=== PATIENT | male | born 1930 | race Caucasian/White ===

== ENCOUNTER 2019-10-30 09:50 | Inpatient (IN) ==
[2019-10-30] MEDS ORDERED: 0.9 % SODIUM CHLORIDE 1,000 ML IV ONE (10:03)
[2019-10-30] MEDS ORDERED: ONDANSETRON 4 MG/2 ML VIAL IV ONE (10:03)
[2019-10-30 11:01] LABS: Basophils # (Auto) 0.01 K/mcL (0.00-0.30); Basophils % (Auto) 0.1 % (0.0-2.0); Eosinophils # (Auto) 0.04 K/mcL (0.00-0.70); Eosinophils % (Auto) 0.5 % (0.0-7.0); Granulocytes % (Auto) 82.1 % (38.0-78.0); Hematocrit 34.3 % (40.1-51.0); Lymphocytes # (Auto) 0.74 K/mcL (1.50-4.80); Lymphocytes % (Auto) 8.8 % (15.5-49.0); Mean Cell Volume 86.8 fL (80.0-100.0); Mean Platelet Volume 9.7 fL (7.4-10.4); Monocytes # (Auto) 0.71 K/mcL (0.10-0.90); Monocytes % (Auto) 8.5 % (1.0-12.0); Platelet Count 205 K/mcL (140-440); RBC 3.95 M/mcL (4.63-6.08); Red Cell Distribution Width 12.3 % (11.5-14.5); WBC 8.4 K/mcL (4.50-11.00)
--- NOTE | 2019-10-30 11:18 | XRay Report ---
CLINICAL INFORMATION: abdominal pain and bloating COMPARISON: None. FINDINGS: The stool gas pattern is unremarkable. There is no free air, soft tissue mass, organomegaly or pathologic calcification. Severe right hip degeneration noted IMPRESSION: Normal abdomen Interpreted and Authenticated by: Royce Stinson 10/30/19
--- NOTE | 2019-10-30 11:20 | XRay Report ---
CLINICAL INFORMATION: cough, fever, weakness COMPARISON: None. FINDINGS: The heart is mildly enlarged. Mediastinum and pulmonary vessels are normal. The lungs are clear. No effusions. Moderate degenerative disc disease and mild chronic wedging seen throughout the mid thoracic spine IMPRESSION: Mild cardiomegaly. No acute disease Interpreted and Authenticated by: Royce Stinson 10/30/19
[2019-10-30 11:23] LABS: ALT/SGPT 12 U/l (0-40); AST/SGOT 24 U/l (0-37); Albumin 4.1 gm/dL (3.2-5.2); Albumin/Globulin Ratio 1.4 (1.0-2.3); Alkaline Phosphatase 65 U/L (39-117); Bilirubin,Total 0.7 mg/dL (0.0-1.0); Blood Urea Nitrogen 16 mg/dl (8-23); Calcium 9.2 mg/dl (8.6-10.4); Carbon Dioxide 20 mmol/L (22-30); Glomerular Filtration Rate 66; Glucose 98 mg/dL (70-105)
[2019-10-30 11:28] LABS: Chloride 87 mmol/L (96-108)
--- NOTE | 2019-10-30 11:34 | Emergency Department Note ---
General Adult HPI - General Chief complaint: Abdominal Pain Stated complaint: Stomach bloating, Headache, Fatigue, Nausea Time Seen by Provider: 10/30/19 10:03 Source: patient Mode of arrival: ambulatory Limitations: no limitations - History of Present Illness HPI Narrative: 89-year-old gentleman presents with generally feeling poor for 6 to 7 days. Is reporting flulike symptoms with body aches and chills. States the body aches are better but he does has absolutely no energy and does not feel like he is getting better in that regard. States he feels so weak it is even hard to walk. He does report that he is probably dehydrated. Does have nausea but no vomiting or diarrhea. States no appetite. No dysuria or frequency. He does have diffuse generalized abdominal discomfort but states he would not really call it pain. No chest pain or difficulty breathing. Does have a moist cough but states he cannot get much up. - Related Data Home Medications Medication Instructions Recorded Confirmed ascorbic acid (vitamin C) 1,000 mg 1 g PO QDAY tab 05/13/18 10/30/19 tablet aspirin 81 mg tablet,delayed 81 mg PO QDAY 05/13/18 10/30/19 release epinephrine 0.3 mg/0.3 mL 0.3 mg IM ONCE 05/13/18 07/25/19 injection, auto-injector levothyroxine 50 mcg tablet 50 mcg PO QAM tab 05/13/18 10/30/19 vitamin E 400 unit tablet 400 unit PO QDAY 05/13/18 10/30/19 zinc 50 mg tablet 100 mg PO QDAY tab 05/13/18 10/30/19 metoprolol succinate 25 mg 25 mg PO QAM tab 08/21/19 10/30/19 tablet,extended release 24 hr Previous Rx's Medication Instructions Recorded meloxicam 7.5 mg tablet 7.5 mg PO BID PRN #60 tab 09/28/19 Allergies Allergy/AdvReac Type Severity Reaction Status Date / Time bee venom protein (honey bee) Allergy Severe Anaphylaxis Verified 10/30/19 09:53 Review of Systems All systems ED: reviewed and negative except as stated. Past Medical History - Past Medical History [facility] Narrative: Medical History (Last Reviewed 08/21/19 @ 11:35 by Rodrigo Waller MD) Fatigue (Chronic) Erectile dysfunction (Chronic) Seborrheic dermatitis (Chronic) Palpitations (Chronic) Bee sting allergy (Chronic) Dermatitis (Chronic) Hip pain, right (Chronic) Hyperlipidemia (Chronic) CHF (congestive heart failure) (Chronic) Atrial fibrillation (Chronic) Osteoarthritis (Chronic) Hypothyroidism (Chronic) Paroxysmal atrial fibrillation with rapid ventricular response (Chronic) Elevated PSA (Chronic) Malignant neoplasm of prostate (Acute) Past Surgical History (Last Reviewed 08/21/19 @ 11:35 by Rodrigo Waller MD) History of laparoscopy (Chronic ~2004) Status post bilateral hernia repair (Chronic) - Social History smoking status: Former smoker Alcohol use: Reports: None Drug use: Reports: none Physical Exam Limitations: no limitations General appearance: alert Head: atraumatic, normocephalic, normal inspection Eye: Present: normal appearance. Absent: conjunctival injection ENT: Present: normal exam, normal oropharynx, mucous membranes moist, TM's normal bilaterally, normal external ear exam. Absent: nasal congestion Neck: Present: normal inspection, trachea midline. Absent: tenderness, lymphadenopathy Chest: Present: symmetric chest wall rise Respiratory: Present: normal lung sounds bilaterally. Absent: respiratory distress, rales/crackles, accessory muscle use Cardiovascular: Present: regular rate, normal heart sounds Abdominal: Present: soft, normal bowel sounds. Absent: distention, tenderness (can not reproduce tenderness with palpation), guarding, rebound, mass Extremities: Present: normal inspection, normal capillary refill. Absent: pedal edema Neurological: Present: alert, oriented X3 Psychiatric: Present: normal affect, normal mood Skin: Present: warm, dry, intact, normal color Course Course Narrative: @1300 Dr. Lambert agrees to accept this patient Vital Signs Temperature 98.6 F 10/30/19 09:53 Pulse Rate 78 10/30/19 09:53 Respiratory Rate 18 10/30/19 09:53 Blood Pressure 166/73 10/30/19 09:53 Pulse Oximetry (%) 95 10/30/19 09:53 Temperature 98.6 F 10/30/19 09:53 Pulse Rate 78 10/30/19 09:53 Respiratory Rate 18 10/30/19 09:53 Blood Pressure 166/73 10/30/19 09:53 Pulse Oximetry (%) 95 10/30/19 09:53 Medical Decision Making - Lab Data Lab results reviewed: Yes I reviewed the patient's lab results. Result diagrams: 10/30/19 10:18 10/30/19 10:18 Lab Results 10/30/19 10/30/19 Range/Units 10:18 10:18 WBC 8.4 (4.50-11.00) K/mcL RBC 3.95 L (4.63-6.08) M/mcL Hgb 12.0 L (13.7-17.5) g/dL Hct 34.3 L (40.1-51.0) % MCV 86.8 (80.0-100.0) fL MCH 30.4 (26.0-34.0) pg MCHC 35.0 (31.0-36.0) g/dL RDW 12.3 (11.5-14.5) % Plt Count 205 (140-440) K/mcL MPV 9.7 (7.4-10.4) fL Gran % 82.1 H (38.0-78.0) % Lymph % (Auto) 8.8 L (15.5-49.0) % Pope % (Auto) 8.5 (1.0-12.0) % Eos % (Auto) 0.5 (0.0-7.0) % Baso % (Auto) 0.1 (0.0-2.0) % Gran # 6.90 (1.80-8.00) K/mcL Lymph # (Auto) 0.74 L (1.50-4.80) K/mcL Pope # (Auto) 0.71 (0.10-0.90) K/mcL Eos # (Auto) 0.04 (0.00-0.70) K/mcL Baso # (Auto) 0.01 (0.00-0.30) K/mcL Sodium 125 L (133-145) mmol/L Potassium 4.1 (3.3-5.1) mmol/L Chloride 87 L (96-108) mmol/L Carbon Dioxide 20 L (22-30) mmol/L Anion Gap 18.0 H (8-16) BUN 16 (8-23) mg/dl Creatinine 1.0 (0.7-1.2) mg/dl GFR Calculation 66 Glucose 98 (70-105) mg/dL Calcium 9.2 (8.6-10.4) mg/dl Total Bilirubin 0.7 (0.0-1.0) mg/dL AST 24 (0-37) U/l ALT 12 (0-40) U/l Alkaline Phosphatase 65 (39-117) U/L Total Protein 7.1 (5.9-8.4) gm/dL Albumin 4.1 (3.2-5.2) gm/dL Globulin 3.0 (2.2-3.7) gm/dL Albumin/Globulin Ratio 1.4 (1.0-2.3) - Radiology Data Radiology results reviewed: Yes I reviewed the patient's radiology results. Disposition Pt seen by ROULETTE DEALER/PA only: Yes Clinical Impression: Flu-like symptoms, Dehydration, Hyponatremia Disposition: Xfer As Outpt/Obs ([facility]) Condition: Fair Referrals: Rodrigo Waller MD [Primary Care Provider] - Time of Disposition: 13:08
--- NOTE | 2019-10-30 13:07 | Internal Med History&Physical ---
Medical - H&P: [facility] Patient information: Note initiated : 10/30/19 at 1:05 pm Service Date, if different from initiated Date: [] Patient: Santhosh Montes a 89 y/o M admitted on for Stomach bloating, Headache, Fatigue, Nausea. Chief Complaint: [] Chief complaint: Weakness History of present illness: Mr. 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 He presents to the ER with 5 days onset of worsening weakness along with loss of appetite and abdominal discomfort. Initial work-up was consistent with hyponatremia at 125. Flu swab was negative. Hospitalist service was consulted in light of profound weakness and symptomatic hyponatremia . At the time evaluation patient is alert and oriented and able to provide most of the history. He denies recent sick contacts. He denies diarrhea, headache, photophobia or shaking chills. He endorses to sore throat and cough. He denies changes in medications. 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 Is otherwise fairly active at baseline. Review of systems A 10 point review system was performed and is negative except for ones cussed above Medical - H&P: [facility] Medical history: Fatigue (Chronic) Erectile dysfunction (Chronic) Seborrheic dermatitis (Chronic) Palpitations (Chronic) Bee sting allergy (Chronic) Dermatitis (Chronic) Hip pain, right (Chronic) Hyperlipidemia (Chronic) CHF (congestive heart failure) (Chronic) Atrial fibrillation (Chronic) Osteoarthritis (Chronic) Hypothyroidism (Chronic) Paroxysmal atrial fibrillation with rapid ventricular response (Chronic) Elevated PSA (Chronic) Malignant neoplasm of prostate (Acute) Surgical History History of laparoscopy (Chronic ~2004) Status post bilateral hernia repair (Chronic) Family History Mother , age 97 No problems noted. Father , age 97 No problems noted. Social History marital status: occupational status: retired leisure activities: hunting physical activity: none smoking status: Former smoker alcohol intake frequency: does not drink substance use type: does not use seatbelt use: always Medical - H&P: Meds Home Medications Medication Instructions Recorded Confirmed Type ascorbic acid (vitamin C) 1,000 mg 1 g PO QDAY tab 05/13/18 10/30/19 History tablet aspirin 81 mg tablet,delayed 81 mg PO QDAY 05/13/18 10/30/19 History release epinephrine 0.3 mg/0.3 mL 0.3 mg IM ONCE 05/13/18 10/30/19 History injection, auto-injector levothyroxine 50 mcg tablet 50 mcg PO QAM tab 05/13/18 10/30/19 History vitamin E 400 unit tablet 400 unit PO QDAY 05/13/18 10/30/19 History zinc 50 mg tablet 100 mg PO QDAY tab 05/13/18 10/30/19 History metoprolol succinate 25 mg 25 mg PO QAM tab 08/21/19 10/30/19 History tablet,extended release 24 hr meloxicam 7.5 mg tablet 7.5 mg PO BID PRN #60 tab 09/28/19 10/30/19 Rx Allergies Allergy/AdvReac Type Severity Reaction Status Date / Time bee venom protein (honey bee) Allergy Severe Anaphylaxis Verified 10/30/19 09:53 Medical - H&P: Exam - Constitutional Vitals: Temp Pulse Resp BP Pulse Ox 98.6 F 78 18 166/73 95 10/30/19 09:53 10/30/19 09:53 10/30/19 09:53 10/30/19 09:53 10/30/19 09:53 General appearance: no acute distress Exam: Alert oriented head normocephalic No ear nose discharge Neck no lymphadenopathy Oral cavity dry S1-S2 regular rhythm, ESM grade 2 Diminished breath sounds bases Abdomen soft nontender no rebound Lower extremity no cyanosis clubbing or joint swelling Skin no suspicious lesion Psych alert cooperative Neuro nonfocal Medical - H&P: Reslt - Labs CBC & Chem 7: 10/30/19 10:18 10/30/19 10:18 Labs: Short CBC 10/30/19 Range/Units 10:18 WBC 8.4 (4.50-11.00) K/mcL Hgb 12.0 L (13.7-17.5) g/dL Hct 34.3 L (40.1-51.0) % Plt Count 205 (140-440) K/mcL BMP 10/30/19 10:18 Sodium 125 L Potassium 4.1 Chloride 87 L Carbon Dioxide 20 L BUN 16 Creatinine 1.0 Glucose 98 Calcium 9.2 Liver Function 10/30/19 Range/Units 10:18 Total Bilirubin 0.7 (0.0-1.0) mg/dL AST 24 (0-37) U/l ALT 12 (0-40) U/l Alkaline Phosphatase 65 (39-117) U/L Albumin 4.1 (3.2-5.2) gm/dL Medical - H&P: A/P (1) Hyponatremia syndrome Current visit: Yes Status: Acute * Hypovolemic hyponatremia-sodium at 125, continue crystalloids, check urine and serum osmolality, 6 hourly sodium checks. * Generalized weakness-PT OT/nutrition support. Likely secondary to hyponatremia * Volume depletion continue crystalloids * Hypothyroidism continue thyroxine * History of hypertension continue metoprolol * Full code * Prophylaxis heparin Plan * Inpatient admission * Hyponatremia work-up * Pre-existing medical condition management as above * PT OT/nutrition support
[2019-10-30] MEDS ORDERED: POLYETHYLENE GLYCOL 3350 17 GM PACKET PO PRN (16:02)
[2019-10-30] MEDS ORDERED: ONDANSETRON 4 MG/2 ML VIAL IV PRN (16:02)
[2019-10-30] MEDS ORDERED: ACETAMINOPHEN 325 MG TABLET PO PRN (16:02)
[2019-10-30] MEDS ORDERED: MELATONIN 3 MG TABLET PO PRN (16:02)
[2019-10-30] MEDS ORDERED: POTASSIUM CHLORIDE 20 MEQ PACKET PO PRN (16:02)
[2019-10-30] MEDS ORDERED: ONDANSETRON 4 MG ODT TABLET SL PRN (16:02)
[2019-10-30] MEDS ORDERED: BISACODYL 10 MG SUPP.RECT PR PRN (16:02)
[2019-10-30] MEDS ORDERED: MAGNESIUM SULFATE 2 GM/50 ML BAG IV PRN (16:02)
[2019-10-30] MEDS ORDERED: ACETAMINOPHEN 650 MG/65 ML BOTTLE IV PRN (16:02)
[2019-10-30] MEDS ORDERED: ONDANSETRON 4 MG/2 ML VIAL ONE (16:04)
[2019-10-30] MEDS: 0.9 % SODIUM CHLORIDE 1,000 ML IV SCH (17:03)
[2019-10-30] MEDS: 0.9 % SODIUM CHLORIDE 10 ML SYRINGE IV SCH ×2 (17:04→20:33)
[2019-10-30] MEDS: DOCUSATE SODIUM 100 MG CAPSULE PO SCH (20:33)
[2019-10-30] MEDS: SENNOSIDES/DOCUSATE SODIUM 1 TAB TABLET PO SCH (20:33)
[2019-10-30] MEDS: HEPARIN 5,000 UNIT/ML VIAL SQ SCH (20:33)
[2019-10-31] MEDS: 0.9 % SODIUM CHLORIDE 10 ML SYRINGE IV SCH ×4 (05:09→23:28)
[2019-10-31 07:11] LABS: Bilirubin,Direct < 0.2 mg/dL (0.0-0.3)
[2019-10-31 07:13] LABS: ALT/SGPT 10 U/l (0-40); AST/SGOT 23 U/l (0-37); Albumin 3.4 gm/dL (3.2-5.2); Albumin/Globulin Ratio 1.4 (1.0-2.3); Alkaline Phosphatase 52 U/L (39-117); Bilirubin,Total 0.5 mg/dL (0.0-1.0); Blood Urea Nitrogen 12 mg/dl (8-23); Calcium 8.4 mg/dl (8.6-10.4); Carbon Dioxide 22 mmol/L (22-30); Chloride 93 mmol/L (96-108); Globulin 2.5 gm/dL (2.2-3.7); Glomerular Filtration Rate 66; Glucose 91 mg/dL (70-105); Lactate Dehydrogenase 178 U/L (94-250); Phosphorous 2.7 mg/dL (2.7-4.5); Triglycerides 55 mg/dl (<150); Uric Acid 5.1 mg/dL (2.5-8.0)
[2019-10-31 07:15] LABS: Hematocrit 29.9 % (40.1-51.0); Hemoglobin 10.3 g/dL (13.7-17.5); Mean Cell Volume 88.2 fL (80.0-100.0); Mean Corpuscular HGB Conc 34.4 g/dL (31.0-36.0); Platelet Count 194 K/mcL (140-440); RBC 3.39 M/mcL (4.63-6.08); Red Cell Distribution Width 12.6 % (11.5-14.5); WBC 8.4 K/mcL (4.50-11.00)
[2019-10-31 09:14] LABS: Band Neutrophils % 6 % (0-10); Lymphocytes % 15 % (15-49); Monocytes % (Manual) 9 % (1-12); Ovalocytes 2+ (NONE SEEN); Platelet Estimate NORMAL (NORMAL); RBC Morphology ABNORM (NORMAL); Segmented Neutrophils % 70 % (38-78)
[2019-10-31] MEDS: DOCUSATE SODIUM 100 MG CAPSULE PO SCH ×2 (09:42→19:24)
[2019-10-31] MEDS: MULTIVIT,THER IRON,CA,FA & MIN 1 TABLET PO SCH (09:42)
[2019-10-31] MEDS: HEPARIN 5,000 UNIT/ML VIAL SQ SCH ×2 (09:42→19:23)
--- NOTE | 2019-10-31 12:28 | Internal Med Progress Note ---
Medical - PN: Subj Patient information: Note initiated : 10/31/19 at 12:26 pm Service Date, if different from initiated Date: [] Patient: Santhosh Montes a 89 y/o M admitted on 10/30/19 for Stomach bloating, Headache, Fatigue, Nausea. Chief Complaint: [] Interval history: Mr. 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 He presents to the ER with 5 days onset of worsening weakness along with loss of appetite and abdominal discomfort. Initial work-up was consistent with hyponatremia at 125. Flu swab was negative. Hospitalist service was consulted in light of profound weakness and symptomatic hyponatremia. At the time evaluation patient is alert and oriented and able to provide most of the history. He denies recent sick contacts. He denies diarrhea, headache, photophobia or shaking chills. He endorses to sore throat and cough. He denies changes in medications. 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 Is otherwise fairly active at baseline. 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 Continue salt tabs/fluid r estriction. Continue PT OT/dietary support. at bedside. T-max 101. Cultures pending. Sodium 128. - Constitutional Vitals: Vital Signs Temp Pulse Resp BP Pulse Ox 98.2 F 73 18 151/71 92 10/31/19 08:00 10/31/19 08:00 10/31/19 08:00 10/31/19 08:00 10/31/19 08:00 Period Temp Pulse Resp BP Sys/Plaza Pulse Ox Last 24 Hr 98.2 F-101.6 F 71-87 18-24 136-173/61-91 92-97 Intake and Output 10/30/19 10/31/19 10/31/19 21:59 05:59 13:59 Intake Total 120 500 Output Total 125 900 375 Balance -5 -400 -375 Weight 200 lb Intake & Output: Intake & Output 10/30/19 10/31/19 10/31/19 21:59 05:59 13:59 Intake Total 120 500 Output Total 125 900 375 Balance -5 -400 -375 Weight 200 lb Intake: Oral 120 500 Output: Void Amount 125 900 375 Other: Meal Dinner Percent of Meal Consumed 25% Feeding Ability Independent Urine Appearance Clear Clear Urine Color Bright Yellow Pale Dark Yellow Urine Odor Normal Normal Strong General appearance: no acute distress Exam: Alert oriented Nonlabored breathing No anxiety Nondistended abdomen No lymphedema Medical - PN: Obj Da - Labs CBC & Chem 7: 10/31/19 05:06 10/31/19 08:10 Labs: Abnormal Lab Results 10/31/19 10/31/19 10/31/19 08:10 05:06 05:06 RBC 3.39 L Hgb 10.3 L Hct 29.9 L Gran % Lymph % (Auto) Lymph # (Auto) RBC Morphology Abnorm A Ovalocytes 2+ A Sodium 128 L 127 L Chloride 93 L Carbon Dioxide Anion Gap Osmolality Calcium 8.4 L 10/31/19 10/30/19 10/30/19 00:10 20:18 10:18 RBC Hgb Hct Gran % Lymph % (Auto) Lymph # (Auto) RBC Morphology Ovalocytes Sodium 125 L 122 L Chloride Carbon Dioxide Anion Gap Osmolality 269 L Calcium 10/30/19 10/30/19 10:18 10:18 RBC 3.95 L Hgb 12.0 L Hct 34.3 L Gran % 82.1 H Lymph % (Auto) 8.8 L Lymph # (Auto) 0.74 L RBC Morphology Ovalocytes Sodium 125 L Chloride 87 L Carbon Dioxide 20 L Anion Gap 18.0 H Osmolality Calcium Meds: Medications Acetaminophen (Tylenol) 650 mg PO Q4-6HP PRN; Protocol PRN Reason: Per Pain Protocol/Fever > 101 Last Admin: 10/30/19 16:50 Dose: 650 mg Documented by: Bisacodyl (Dulcolax) 10 mg ID Q2-3DAYS PRN PRN Reason: Constipation Docusate Sodium (Colace) 100 mg PO BID [facility] Last Admin: 10/31/19 09:42 Dose: 100 mg Documented by: Heparin Sodium (Porcine) (Heparin) 5,000 unit SQ Q12 [facility] Last Admin: 10/31/19 09:42 Dose: 5,000 unit Documented by: Sodium Chloride (Sodium Chloride 0.9%) 1,000 mls @ 50 mls/hr IV .Q20H [facility] Stop: 11/02/19 04:01 Last Admin: 10/30/19 17:03 Dose: 50 mls/hr Documented by: Acetaminophen (Ofirmev) 650 mg in 65 mls @ 130 mls/hr IV Q6HP PRN; Protocol PRN Reason: Per Pain Protocol/Fever > 101 Magnesium Sulfate (Magnesium Sulfate) 2 gm in 50 mls @ 50 mls/hr IV UD PRN PRN Reason: MG = or < 1.7 Iron Carb/Multivit/Bishop/Folic Acid (Multivitamin W/Minerals) 1 tab PO DAILY [facility] Last Admin: 10/31/19 09:42 Dose: 1 tab Documented by: Melatonin (Melatonin 3mg Tablet) 3 mg PO HSP PRN PRN Reason: Insomnia Ondansetron HCl (Zofran Odt) 4 mg SL Q4-6HP PRN; Protocol PRN Reason: Nausea And Vomiting Ondansetron HCl (Zofran) 4 mg IV Q4-6HP PRN; Protocol PRN Reason: Nausea And Vomiting Polyethylene Glycol (Miralax) 17 gm PO DAILYP PRN PRN Reason: Constipation Potassium Chloride (Klor-Con) 40 meq PO DAILYP PRN PRN Reason: K+ < 3.5 Senna/Docusate Sodium (Senna Plus Tablet) 1 tab PO HS [facility] Last Admin: 10/30/19 20:33 Dose: 1 tab Documented by: Sodium Chloride (Saline Flush) 10 ml IV Q8 [facility] Last Admin: 10/31/19 05:09 Dose: 10 ml Documented by: Sodium Chloride (Sodium Chloride) 2 gm PO TID [facility] Medical - PN: A/P - Time Spent With Patient Total time spent is greater than 50% in coordination of care (as documented) at patient's floor/unit and/or counseling patient: 25 - 35 minutes (1) Hyponatremia syndrome Status: Acute Assessment and plan: * 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 Continues salt tabs/free water restriction * Generalized weakness-secondary to hyponatremia. Continue PT OT/nutrition support. * Fever with acute viral syndrome. Supportive management. Pending blood cultures * Hypothyroidism continue thyroxine * History of hypertension continue metoprolol * Full code * Prophylaxis heparin Plan * Salt tabs/free water restriction * Continue pre-existing medical condition management as above * PT OT/nutrition support * Blood cultures * Discharge planning likely in 24 to 48 hours Current Visit: Yes Medical - PN: Qual - VTE Deep Vein Thrombosis/Pulmonary Embolism Present on Admission: No
[2019-10-31] MEDS: 0.9 % SODIUM CHLORIDE 1,000 ML IV SCH (13:23)
[2019-10-31] MEDS: SODIUM CHLORIDE 1 GM TABLET PO SCH ×2 (16:06→19:24)
[2019-10-31] MEDS: SENNOSIDES/DOCUSATE SODIUM 1 TAB TABLET PO SCH (19:24)
[2019-11-01] MEDS: 0.9 % SODIUM CHLORIDE 10 ML SYRINGE IV SCH (05:38)
[2019-11-01] MEDS: 0.9 % SODIUM CHLORIDE 1,000 ML IV SCH ×2 (07:25→09:25)
[2019-11-01 08:04] LABS: Hematocrit 31.2 % (40.1-51.0); Hemoglobin 10.7 g/dL (13.7-17.5); Mean Cell Volume 87.6 fL (80.0-100.0); Mean Corpuscular HGB Conc 34.3 g/dL (31.0-36.0); Mean Platelet Volume 9.9 fL (7.4-10.4); Platelet Count 199 K/mcL (140-440); RBC 3.56 M/mcL (4.63-6.08); Red Cell Distribution Width 12.5 % (11.5-14.5); WBC 8.1 K/mcL (4.50-11.00)
[2019-11-01] MEDS: HEPARIN 5,000 UNIT/ML VIAL SQ SCH (08:04)
[2019-11-01] MEDS: SODIUM CHLORIDE 1 GM TABLET PO SCH (08:04)
[2019-11-01] MEDS: MULTIVIT,THER IRON,CA,FA & MIN 1 TABLET PO SCH (08:04)
[2019-11-01] MEDS: DOCUSATE SODIUM 100 MG CAPSULE PO SCH (08:04)
[2019-11-01 08:21] LABS: ALT/SGPT 12 U/l (0-40); AST/SGOT 27 U/l (0-37); Albumin 3.1 gm/dL (3.2-5.2); Alkaline Phosphatase 79 U/L (39-117); Bilirubin,Direct < 0.2 mg/dL (0.0-0.3); Bilirubin,Total 0.6 mg/dL (0.0-1.0); Blood Urea Nitrogen 11 mg/dl (8-23); Calcium 8.4 mg/dl (8.6-10.4); Carbon Dioxide 21 mmol/L (22-30); Chloride 96 mmol/L (96-108); Glomerular Filtration Rate 75; Glucose 95 mg/dL (70-105); Lactate Dehydrogenase 244 U/L (94-250); Phosphorous 2.2 mg/dL (2.7-4.5); Triglycerides 77 mg/dl (<150); Uric Acid 4.4 mg/dL (2.5-8.0)
[2019-11-01 08:41] LABS: Eosinophils % (Manual) 1 % (0-7); Lymphocytes % 15 % (15-49); Monocytes % (Manual) 5 % (1-12); Platelet Estimate NORMAL (NORMAL); RBC Morphology NORMAL (NORMAL); Segmented Neutrophils % 79 % (38-78)
--- NOTE | 2019-11-01 09:15 | Discharge Summary ---
Medical - DS: Prov Patient information: Note initiated : 11/01/19 at 9:13 am Service Date, if different from initiated Date: [] Patient: Santhosh Montes 89 y/o M admitted on 10/30/19 for Stomach bloating, Headache, Fatigue, Nausea. Chief Complaint: [] Date of admission: 10/30/19 14:50 Discharge date: 11/01/19 Primary care physician: Rodrigo Waller Consults: 10/30/19 Consult to Physician [CONS] Stat Comment: Consulting Provider: Bharti Razo Reason For Exam: admission 10/30/19 17:17 Consult to Physician [CONS] Routine Comment: Consulting Provider: Alfredo Lambert Reason For Exam: Physician to Consult Medical - DS: Meds - Discharge Medications Prescriptions: Sodium Chloride 2 gm PO BID #30 tab Transmission Status: Pending to [id number] Active and Home Medications: Home Medications ascorbic acid (vitamin C) 1,000 mg tablet 1 g PO QDAY tab 05/13/18 [History Confirmed 10/30/19 Last Taken Unknown] aspirin 81 mg tablet,delayed release 81 mg PO QDAY 05/13/18 [History Confirmed 10/30/19 Last Taken 10/29/19 08:00] epinephrine 0.3 mg/0.3 mL injection, auto-injector 0.3 mg IM ONCE 05/13/18 [History Confirmed 10/30/19 Last Taken Unknown] levothyroxine 50 mcg tablet 50 mcg PO QAM tab 05/13/18 [History Confirmed 10/30/19 Last Taken 10/29/19 08:00] vitamin E 400 unit tablet 400 unit PO QDAY 05/13/18 [History Confirmed 10/30/19 Last Taken Unknown] zinc 50 mg tablet 100 mg PO QDAY tab 05/13/18 [History Confirmed 10/30/19 Last Taken Unknown] metoprolol succinate 25 mg tablet,extended release 24 hr 25 mg PO QAM tab 08/21/19 [History Confirmed 10/30/19 Last Taken 10/29/19 08:00] meloxicam 7.5 mg tablet 7.5 mg PO BID PRN #60 tab 09/28/19 [Rx Confirmed 10/30/19 Last Taken 10/29/19 08:00] Sodium Chloride 2 gm PO BID #30 tab 11/01/19 [Rx Last Taken Unknown] Medical - DS: Hosp Hospital Course: Discharge diagnosis * 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 Continues salt tabs/free water restriction. Sodium improved to 128 * Generalized weakness-secondary to hyponatremia. Clinically improved. Able to ambulate. Discharging with advised to follow-up with primary care physician * Fever with acute viral syndrome. Clinically improved with supportive management * Hypothyroidism continue thyroxine * History of hypertension continue metoprolol Brief hospital course Mr. 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 He presents to the ER with 5 days onset of worsening weakness along with loss of appetite and abdominal discomfort. Initial work-up was consistent with hyponatremia at 125. Flu swab was negative. Hospitalist service was consulted in light of profound weakness and symptomatic hyponatremia. At the time evaluation patient is alert and oriented and able to provide most of the history. He denies recent sick contacts. He denies diarrhea, headache, photophobia or shaking chills. He endorses to sore throat and cough. He denies changes in medications. 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 Is otherwise fairly active at baseline. 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 Continue salt tabs/fluid restriction. Continue PT OT/dietary support. at bedside. T-max 101. Cultures pending. Sodium 128. 11/01-patient doing well. No overnight events. Ambulating. No fever chills. Improved weakness. Tolerating diet. Sodium at 128. Continue salt tabs and free water restriction for SIADH. Discharge diagnosis: . - Time Spent with Patient Total time spent providing and/or coordinating discharge services: Greater than 30 minutes Medical - DS: Exam - Constitutional Vitals: Vital Signs Temp Pulse Resp BP BP Pulse Ox 11/01/19 07:43 98.4 F 84 22 150/78 94 11/01/19 03:34 99.5 F H 84 24 H 142/74 91 11/01/19 00:02 99.6 F H 84 24 H 114/61 90 10/31/19 19:15 99.5 F H 82 24 H 145/72 91 10/31/19 16:00 98.7 F 79 18 146/89 94 10/31/19 12:00 98.8 F 76 18 146/70 93 10/31/19 09:45 93 Intake and Output 10/31/19 11/01/19 11/01/19 21:59 05:59 13:59 Intake Total 480 Output Total 200 Balance 280 Intake: Oral 480 Output: Void Amount 200 Other: Meal Dinner Percent of Meal Consumed 50% Urine Appearance Clear Urine Color Bright Yellow Weight 200 lb Medical - DS: Data Labs on day of discharge: Labs from last 24 hours 11/01/19 11/01/19 10/31/19 06:10 06:10 16:03 WBC 8.1 RBC 3.56 L Hgb 10.7 L Hct 31.2 L MCV 87.6 MCH 30.1 MCHC 34.3 RDW 12.5 Plt Count 199 MPV 9.9 Total Counted 100 Seg Neutrophils % 79 H Band Neutrophils % Not Reportable Lymphocytes % 15 Monocytes % (Manual) 5 Eosinophils % (Manual) 1 Differential Comment Platelet Estimate Normal RBC Morphology Normal Ovalocytes Sodium 128 L 129 L Potassium 4.0 Chloride 96 Carbon Dioxide 21 L Anion Gap 11.0 BUN 11 Creatinine 0.9 GFR Calculation 75 Glucose 95 Uric Acid 4.4 Calcium 8.4 L Phosphorus 2.2 L Magnesium 1.8 Total Bilirubin 0.6 Direct Bilirubin < 0.2 GGT 29 AST 27 ALT 12 Alkaline Phosphatase 79 Lactate Dehydrogenase 244 Total Protein 6.1 Albumin 3.1 L Globulin 3.0 Albumin/Globulin Ratio 1.0 Triglycerides 77 10/31/19 10/31/19 10/31/19 12:03 08:10 05:06 WBC RBC Hgb Hct MCV MCH MCHC RDW Plt Count MPV Total Counted 100 Seg Neutrophils % 70 Band Neutrophils % 6 Lymphocytes % 15 Monocytes % (Manual) 9 Eosinophils % (Manual) Differential Comment Giant platelets seen Platelet Estimate Normal RBC Morphology Abnorm A Ovalocytes 2+ A Sodium 129 L 128 L Potassium Chloride Carbon Dioxide Anion Gap BUN Creatinine GFR Calculation Glucose Uric Acid Calcium Phosphorus Magnesium Total Bilirubin Direct Bilirubin GGT AST ALT Alkaline Phosphatase Lactate Dehydrogenase Total Protein Albumin Globulin Albumin/Globulin Ratio Triglycerides Preliminary micro results at discharge 10/30/19 20:20 Blood Culture - Preliminary Blood 10/30/19 20:18 Blood Culture - Preliminary Blood Medical - DS: A/P - Patient/Caregiver Discharge Instructions Activity: increase activity as tolerated Diet: Regular Diet Additional Instructions: Continue 2 g twice daily salt tablets Follow-up primary care physician in 5 to 7 days Continue regular diet Free water restriction to 1200 cc a day Prescriptions: Sodium Chloride 2 gm PO BID #30 tab Transmission Status: Pending to [facility] - Problem Maintenance (1) Hyponatremia syndrome Status: Acute - Follow up Plan Follow up with: Rodrigo Waller MD [Primary Care Provider] - Disposition: Home, Self-Care Prognosis: Fair Rehab Potential: Fair I certify that the patient requires SNF services: No Overall status at discharge: patient is progressing back to baseline Medical - DS: Qual - VTE Deep Vein Thrombosis/Pulmonary Embolism Present on Admission: No
== END 2019-11-01 10:47 | disposition home or self-care (01) | DRG 645 ==
LOC: ED 09:50 → MEDSUR 14:50
PROVIDERS: ADMIT Internal Medicine; ATTEND Internal Medicine